=== PATIENT | male | born 1945 | race African-American/Black ===

== ENCOUNTER 2016-11-19 13:22 | Inpatient (IN) | payer OTHER ==
[2016-11-18 20:00] VITALS: BP 208/78
[~2016-11-19] VITALS: Ht 182.9 cm; Wt 75.0 kg
[2016-11-19] VITALS (8 sets, daily range): BP systolic 160–300; BP diastolic 61–90
[2016-11-19] MEDS ORDERED: LISINOPRIL20 MG PO (13:49)
[2016-11-19] MEDS ORDERED: DEPAKOTE ER250 MG PO (13:50)
[2016-11-19] MEDS ORDERED: ASPIRIN81 M2 PO (13:51)
[2016-11-19] MEDS ORDERED: MELATONIN5 M4 PO (13:51)
[2016-11-19 13:54] LABS: POTASSIUM 4.2 mEq/L (3.7-5.4)
[2016-11-19 14:04] LABS: EOSINOPHIL (%) 2.5 % (0-5); EOSINOPHIL COUNT 0.1 K/uL (0-0.3); HEMATOCRIT 47.2 % (38.0-50.0); IMMATURE GRANULOCYTE (%) 0.2 % (0.0-0.7); INSTRUMENT ABS NEUTROPHIL CT 2.8 K/uL; LYMPHOCYTE COUNT 1.5 K/uL (1.0-2.8); MCHC 31.8 G/DL (30.0-36.0); MCV 81.9 FL (86-99); MEAN PLAT.VOLUME 12.3 uM^3 (9.0-12.4); MONOCYTE (%) 9.3 % (3-12); MONOCYTE COUNT 0.5 K/uL (0-0.8); NEUTROPHIL (%) 56.9 % (45-76); NEUTROPHIL COUNT 2.8 K/uL (1.8-6.4); PLATELET COUNT 184 K/uL (156-360); RBC DIS.WIDTH-CV 13.2 % (11.8-14.6); RBC DIS.WIDTH-SD 39.4 % (39-53); RED BLOOD COUNT 5.76 M/uL (4.00-5.50); WHITE BLOOD COUNT 4.9 K/uL (4.1-10.2)
[2016-11-19 14:19] LABS: CHLORIDE 104 mEq/L (99-109); POTASSIUM 4.3 mEq/L (3.7-5.4); SODIUM 139 mEq/L (136-147); TROP-I INTERPRETATION NEGATIVE; TROPONIN-I 0.07 ng/mL (0.0-0.30)
[2016-11-19 14:20] LABS: MAGNESIUM 2.7 mg/dL (1.3-2.7)
[2016-11-19 14:22] LABS: GLUCOSE 82 mg/dL (70-99)
[2016-11-19 14:23] LABS: ANION GAP 9 MEQ/L (2-14)
[2016-11-19 14:24] LABS: TOTAL BILIRUBIN 0.5 mg/dL (0.0-1.0)
[2016-11-19 14:25] LABS: ALKALINE PHOSPHATASE 122 IU/L (3-129); GFR ESTIMATE (CALCULATED) > 59 mL/min/
[2016-11-19 14:27] LABS: UREA NITROGEN (BUN) 15 mg/dL (9-23)
[2016-11-19 14:52] LABS: SAMPLE HEMOLYSIS CHECK 0; SAMPLE ICTERIC CHECK 0; SAMPLE LIPEMIA CHECK 0
[2016-11-19] MEDS ORDERED: LOW DOSE ASPIRI81 M1 PO (15:21)
[2016-11-19] MEDS ORDERED: AMOXICILLIN500 MG PO (15:22)
[2016-11-19] MEDS ORDERED: DEPAKOTE250 MG PO (15:26)
[2016-11-19 21:39] LABS: METH RESISTANT S AUREUS PCR NEGATIVE (NEGATIVE)
[2016-11-19 21:42] LABS: PROBE CHECK PASS; SPECIMEN PROCESSING CONTROL PASS
[2016-11-20] VITALS (26 sets, daily range): BP systolic 117–195; BP diastolic 55–87
[2016-11-20 08:48] LABS: INTER. NORMALIZED RATIO 1.1; PROTHROMBIN TIME 11.4 (9.2-11.2); PTT 27.4 (25-32)
[2016-11-20 08:59] LABS: LYME DISEASE SEROLOGY SCREEN NEGATIVE (NEGATIVE)
[2016-11-20 13:29] LABS: ANION GAP 11 MEQ/L (2-14); CHLORIDE 107 MEQ/L (99-109); GFR ESTIMATE (CALCULATED) > 59 mL/min/; GLUCOSE 95 mg/dL (70-99); POTASSIUM 4.2 MEQ/L (3.7-5.4); SAMPLE HEMOLYSIS CHECK 0; SAMPLE ICTERIC CHECK 0; SAMPLE LIPEMIA CHECK 0; SODIUM 139 MEQ/L (136-147); UREA NITROGEN (BUN) 13 mg/dL (9-23)
[2016-11-20 13:44] LABS: EOSINOPHIL (%) 0.6 % (0-5); HEMATOCRIT 47.2 % (38.0-50.0); IMMATURE GRANULOCYTE (%) 0.3 % (0.0-0.7); INSTRUMENT ABS NEUTROPHIL CT 5.3 K/uL; LYMPHOCYTE COUNT 1.3 K/uL (1.0-2.8); MCH 25.6 PG (29.0-34.0); MCHC 31.4 G/DL (30.0-36.0); MCV 81.5 FL (86-99); MEAN PLAT.VOLUME 11.8 uM^3 (9.0-12.4); MONOCYTE (%) 6.3 % (3-12); MONOCYTE COUNT 0.5 K/uL (0-0.8); NEUTROPHIL (%) 74.3 % (45-76); NEUTROPHIL COUNT 5.3 K/uL (1.8-6.4); PLATELET COUNT 174 K/uL (156-360); RBC DIS.WIDTH-CV 13.5 % (11.8-14.6); RBC DIS.WIDTH-SD 39.4 % (39-53); RED BLOOD COUNT 5.79 M/uL (4.00-5.50); WHITE BLOOD COUNT 7.1 K/uL (4.1-10.2)
[2016-11-21] VITALS (10 sets, daily range): BP systolic 104–176; BP diastolic 71–110
[2016-11-21 05:57] LABS: HEMATOCRIT 44.4 % (38.0-50.0); MCH 25.6 PG (29.0-34.0); MCHC 31.5 G/DL (30.0-36.0); MCV 81.2 FL (86-99); MEAN PLAT.VOLUME 11.6 uM^3 (9.0-12.4); PLATELET COUNT 166 K/uL (156-360); RBC DIS.WIDTH-CV 13.7 % (11.8-14.6); RBC DIS.WIDTH-SD 39.8 % (39-53); RED BLOOD COUNT 5.47 M/uL (4.00-5.50); WHITE BLOOD COUNT 7.1 K/uL (4.1-10.2)
[2016-11-21 06:19] LABS: ANION GAP 9 MEQ/L (2-14); CHLORIDE 105 MEQ/L (99-109); GFR ESTIMATE (CALCULATED) > 59 mL/min/; GLUCOSE 102 mg/dL (70-99); MAGNESIUM 1.9 mg/dl (1.3-2.7); POTASSIUM 4.4 MEQ/L (3.7-5.4); SAMPLE HEMOLYSIS CHECK 0; SAMPLE ICTERIC CHECK 0; SAMPLE LIPEMIA CHECK 0; SODIUM 138 MEQ/L (136-147); UREA NITROGEN (BUN) 17 mg/dL (9-23)
[2016-11-21] MEDS ORDERED: TRAZODONE HCL100 MG PO (16:56)
[2016-11-21] MEDS ORDERED: NORVASC5 MG PO (16:57)
[2016-11-21] MEDS ORDERED: LISINOPRIL20 MG PO (17:00)
== END 2016-11-21 18:28 | disposition home or self-care (01) | DRG 244 ==
LOC: EME 13:22 → 4WEST 16:00 → EDOF 16:00 → 4EAST 18:12 → 4WEST 19:03 → 4EAST 19:05 → 4WEST 19:18
PROVIDERS: Emergency Medicine; Internal Medicine Cardiovascular Disease; Internal Medicine Nephrology
DX: I44.2 Atrioventricular block, complete (principal); R00.1 Bradycardia, unspecified; I16.0 Hypertensive urgency; I44.1 Atrioventricular block, second degree; I44.4 Left anterior fascicular block; I35.1 Nonrheumatic aortic (valve) insufficiency; J01.90 Acute sinusitis, unspecified; F17.211 Nicotine dependence, cigarettes, in remission; G40.909 Epilepsy, unspecified, not intractable, without status epilepticus; Z85.46 Personal history of malignant neoplasm of prostate; Z80.0 Family history of malignant neoplasm of digestive organs; Z80.7 Family history of other malignant neoplasms of lymphoid, hematopoietic and related tissues; Z79.82 Long term (current) use of aspirin
CPT/HCPCS: 71010; 80047; 80048; 80053; 80164; 83735; 84100; 84484; 85025; 85027; 85610; 85730; 86618; 87641; 93005; 93306; 99281; 99285; C1785; C1892; C1894; C1898; J0360; J0690; J1200; J1650; J2250; J3010; J7030; S0020